=== PATIENT | male | born 2000 | race Caucasian/White ===

== ENCOUNTER 2023-08-09 14:15 | Emergency (ER) | payer MEDICAID ==
[~2023-08-09] VITALS: Ht 177.8 cm; Wt 97.1 kg
[2023-08-09 14:22] VITALS: BP 134/72; PULSE 82; RESP 16; TEMP 98; O2SAT 99
[2023-08-09 15:46] VITALS: BP 122/65; PULSE 82; RESP 16; TEMP 98; O2SAT 99
== END 2023-08-09 15:47 | disposition home or self-care (01) ==
LOC: MED 14:15
DX: L72.0 Epidermal cyst (principal); Z48.02 Encounter for removal of sutures; Z79.899 Other long term (current) drug therapy
CPT/HCPCS: 99281